=== PATIENT | male | born 1980 | race Caucasian/White ===

== ENCOUNTER 2022-04-18 06:47 | Emergency (ER) | payer BC ==
[2022-04-18] MEDS ORDERED: XYLOCAINE 1% HCL 20 ML MDV ONE (06:59)
[2022-04-18 07:01] VITALS: O2SAT 100
[2022-04-18] MEDS ORDERED: ARZOL Silver Nitrate Applicator TP ONE (07:03)
[2022-04-18] MEDS ORDERED: XYLOCAINE 1% HCL 20 ML MDV IJ ONE (07:06)
[2022-04-18] MEDS ORDERED: BACIGUENT PACKET TP ONE (07:18)
[2022-04-18] MEDS ORDERED: BACIGUENT PACKET ONE (07:19)
--- NOTE | 2022-04-18 07:23 | ERPHSYRPT ---
- History of Present Illness Time Seen by Provider: 04/18/22 07:00 Source: patient Exam Limitations: no limitations Patient Subjective Stated Complaint: pt was loading trailer on to truck and the trailer came down and landed on the tip of the lerft middle finger. Triage Nursing Assessment: pt is alert and oriented. vitals wnl. tip of left middle finger is severed. Physician History: This is a 41-year-old right-handed white male who injured his left middle digit when trying to connect a trailer to his truck. This occurred just prior to arrival. Patient's tetanus status is not up-to-date. Patient is tip of finger is bleeding significantly and there is an apparent open fracture of this distal tuft. Occurred: just prior to arrival Method of Injury: other (Crush) Quality: aching, throbbing Severity of Pain-Max: moderate Severity of Pain-Current: moderate Extremities Pain Location: 3rd finger: left Modifying Factors: Improves With: movement Associated Symptoms: none Allergies/Adverse Reactions: No Known Drug Allergies Allergy (Unverified 04/18/22 07:01) Hx Tetanus, Diphtheria Vaccination/Date Given: No Travel Risk - International Travel Have you traveled outside of the country in past 3 weeks: No - Coronavirus Screening Are you exhibiting any of the following symptoms?: No Close contact with a COVID-19 positive Pt in past 14-21 Days: No - Vaccine Status Have you recieved a Covid-19 vaccination: No - Review of Systems Constitutional: No Symptoms Eyes: No Symptoms Ears, Nose, & Throat: No Symptoms Respiratory: No Symptoms Cardiac: No Symptoms Abdominal/Gastrointestinal: No Symptoms Genitourinary Symptoms: No Symptoms Musculoskeletal: Injury (Injury to left middle digit) Skin: No Symptoms Neurological: No Symptoms Psychological: No Symptoms Endocrine: No Symptoms Hematologic/Lymphatic: No Symptoms Immunological/Allergic: No Symptoms All Other Systems: Reviewed and Negative - Past Medical History Pertinent Past Medical History: No - Past Surgical History Gastrointestinal: Hernia Repair Other Surgical History: fatty tumor removal from abdominal area - Social History Smoking Status: Former smoker Drug Use: none - Nursing Vital Signs Nursing Vital Signs: Initial Vital Signs Temperature 97.8 F 04/18/22 06:51 Pulse Rate 87 04/18/22 06:51 Respiratory Rate 18 04/18/22 06:51 Blood Pressure 149/96 04/18/22 06:51 O2 Sat by Pulse Oximetry 100 04/18/22 06:51 Pain Scale Pain Intensity 10 - Physical Exam General Appearance: mild distress, alert, anxiety Eyes, Ears, Nose, Throat Exam: normal ENT inspection, moist mucous membranes Neck Exam: normal inspection, non-tender, supple, full range of motion Cardiovascular/Respiratory Exam: chest non-tender, no respiratory distress Abdominal Exam: non-tender Back Exam: normal inspection, normal range of motion, No CVA tenderness, No vertebral tenderness Shoulder Exam: normal inspection, non-tender, no evidence of injury, normal ROM Elbow/Forearm Exam: normal inspection, non-tender, no evidence of injury, normal ROM Wrist Exam: normal inspection, non-tender, no evidence of injury, normal ROM Hand Exam: nail injury (Left middle digit distally), soft tissue tenderness (Distal left middle digit with apparent open fracture, nail injury and loss and bleeding present. No evidence of tendon injury) Neuro/Tendon Exam: normal motor functions, normal tendon functions, responds to pain, no evidence tendon injury Mental Status Exam: alert, oriented x 3, cooperative Skin Exam: other (Distal third digit tissue loss) SpO2 Interpretation: normal SpO2: 100 O2 Delivery: Room Air Procedures - Additional Procedures Progress: Timeout performed at 0700. Area was cleaned third digit left hand distally with Hibiclens/saline solution. The digit was anesthetized initially with approximately 6 cc of 1% lidocaine plain. We initially used a cautery pen to provide a degree of hemostasis. However, two simple interrupted sutures of 3-0 Vicryl were used and necessary to provide hemostasis to the site. The wound was then again irrigated and cleaned. It was then dried. Bacitracin ointment, nonstick gauze and compression dressing was applied. Patient taught procedure well. - Course Nursing assessment & vital signs reviewed: Yes Ordered Tests: Active Orders 24 hr Category Date Time Status HAND (MINIMUM 3 VIEWS) Stat Exams 04/18/22 07:37 Taken Medication Summary Discontinued Medications Generic Name Dose Route Start Last Admin Trade Name Freq PRN Reason Stop Dose Admin Bacitracin Zinc 0.9 each 04/18/22 07:18 04/18/22 07:20 Bacitracin Packet 1 Each Pckt TP 04/18/22 07:19 0.9 each STAT ONE Administration Bacitracin Zinc Confirm 04/18/22 07:19 Bacitracin Packet 1 Each Pckt Administered 04/18/22 07:20 Dose 1 each .ROUTE .STK-MED ONE Cephalexin HCl 500 mg 04/18/22 07:36 04/18/22 07:50 Cephalexin Mh500 Mg Capsule PO 04/18/22 07:37 500 mg STAT ONE Administration Cephalexin HCl Confirm 04/18/22 07:48 Cephalexin Mh500 Mg Capsule Administered 04/18/22 07:49 Dose 500 mg .ROUTE .STK-MED ONE Diphtheria/Tetanus/Acell Pertussis 0.5 ml 04/18/22 07:36 04/18/22 07:50 Tdap --Diph,Pertuss(Acell),Tet Vac/Pf 0.5 Ml Vial IM 04/18/22 07:37 0.5 ml .ONCE ONE Administration Diphtheria/Tetanus/Acell Pertussis Confirm 04/18/22 07:48 Tdap --Diph,Pertuss(Acell),Tet Vac/Pf 0.5 Ml Vial Administered 04/18/22 07:49 Dose 0.5 ml IM .STK-MED ONE Lidocaine HCl Confirm 04/18/22 06:59 Lidocaine Hcl 1% 20 Ml Mdv 20 Ml Ml Administered 04/18/22 07:00 Dose 10 ml .ROUTE .STK-MED ONE Lidocaine HCl 10 ml 04/18/22 07:06 04/18/22 07:07 Lidocaine Hcl 1% 20 Ml Mdv 20 Ml Ml IJ 04/18/22 07:07 10 ml STAT ONE Administration Oxycodone/Acetaminophen 1 tab 04/18/22 07:36 04/18/22 07:50 Oxycodone Hcl/Apap 5 Mg/325 Mg Tablet PO 04/18/22 07:37 1 tab STAT STA Administration Oxycodone/Acetaminophen Confirm 04/18/22 07:48 Oxycodone Hcl/Apap 5 Mg/325 Mg Tablet Administered 04/18/22 07:49 Dose 1 tab .ROUTE .STK-MED ONE Silver Nitrate Confirm 04/18/22 07:03 Silver Nitrate 1 Pkt Each Administered 04/18/22 07:04 Dose 1 pkt TP .STK-MED ONE - Progress Progress: improved Progress Note: 04/18/22 07:30 Medical decision making: I spoke with Dr. Lindsay, hand surgeon out of [facility]. He reviewed the photos I took of the site after obtaining permission from the patient to do so. Dr. Hanley will see the patient today at 1 PM at his office. We are providing the patient with the office phone number and address. Patient will also receive Keflex antibiotics and a prescription for pain medication. X-ray results will be sent to Dr. Lindsay as well. 04/18/22 08:00 X-ray left hand shows obvious tissue loss distal third digit. ? tuft fracture without obvious dislocation. Counseled pt/family regarding: diagnosis, need for follow-up, rad results - Departure Departure Disposition: Home Clinical Impression: Open fracture of distal phalanx of digit of left hand Condition: Stable Critical Care Time: No Referrals: DOCTOR,NO FAMILY [NON-STAFF PHY W/O PRIVILEGES] - Follow up/PCP as directed Additional Instructions: Go to see Dr. Lindsay in [facility] at 1 PM. 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 Keep the pressure dressing in place. Prescriptions: Oxycodone HCl/Acetaminophen [Percocet 5-325 mg Tablet] 1 each PO Q8H PRN PRN #6 tablet MDD 3 PRN Reason: Moderate To Severe Pain Cephalexin Mh 500 mg [Keflex 500 mg] 500 mg PO TID #21 cap
[2022-04-18] MEDS ORDERED: Adacel Vial IM ONE ×2 (07:36→07:48)
[2022-04-18] MEDS ORDERED: PERCOCET TABLET 5/325MG PO STA (07:36)
[2022-04-18] MEDS ORDERED: KEFLEX 500 MG PO ONE (07:36)
[2022-04-18] MEDS ORDERED: PERCOCET TABLET 5/325MG ONE (07:48)
[2022-04-18] MEDS ORDERED: KEFLEX 500 MG ONE (07:48)
[2022-04-18 08:01] VITALS: BP 125/93; PULSE 80
--- NOTE | 2022-04-18 09:04 | XRAY ---
Indication: 3rd finger crush injury. Comparison: None 3 view left hand demonstrates soft tissue amputation with tiny tuft fracture distal 3rd finger with overlying bandage material. No other bony, articular, or soft tissue abnormalities.
== END 2022-04-18 08:18 | disposition home or self-care (01) ==
LOC: ED 06:47
DX: S62.633B Displaced fracture of distal phalanx of left middle finger, initial encounter for open fracture (principal); W23.0XXA Caught, crushed, jammed, or pinched between moving objects, initial encounter; M79.645 Pain in left finger(s); Z28.310 Unvaccinated for COVID-19; Z79.891 Long term (current) use of opiate analgesic
CPT/HCPCS: 73130; 90471; 90715; 99283; A9270-GY